=== PATIENT | female | born 1945 | race Caucasian/White ===

== ENCOUNTER 2017-12-28 09:38 | Emergency (ER) | payer MEDICARE ==
[~2017-12-28] VITALS: Ht 165.1 cm; Wt 81.6 kg
[~2017-12-28 09:38] MED LIST: MULT-1045 PO
--- NOTE | 2017-12-28 09:55 | NUR ---
Patient is AOx4, c/o right lower eyelid pains with localized redness & swelling noted, eye pains worse with palpation, dull in nature, pain does not radiate, 3-4/10 pain scale, started about 2 days ago. Sty? MD to evaluate at this time.
== END 2017-12-28 10:34 | disposition home or self-care (01) ==
LOC: ER 09:38
DX: H00.012 Hordeolum externum right lower eyelid (principal); Z91.041 Radiographic dye allergy status
CPT/HCPCS: A4663

== ENCOUNTER → 2018-05-04 | Emergency (ER) | payer MEDICARE ==
[~2018-05-04] VITALS: Ht 165.1 cm; Wt 74.4 kg
[~2018-05-04] MED LIST changes: +ALBUTEROL SULFATE 2.5 MG/3 ML NEBU NEB ONE; +ALBUTEROL SULFATE 2.5 MG/3 ML NEBU ONE; +BENZONATATE 100 MG CAPSULE ONE; +BENZONATATE 100 MG CAPSULE PO ONE
--- NOTE | 2018-05-04 19:45 | NUR ---
Pt. ambulated into ED w/ c/o SOB and chest tightness since today, pt. reports having a cough w/ yellowish discharge since this weekend,
--- NOTE | 2018-05-04 20:11 | NUR ---
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
--- NOTE | 2018-05-04 20:15 | NUR ---
RT at bedside for breathing tx,
[2018-05-04 20:20] LABS: BASOPHILS # (AUTO) 0.1 K/uL (0.0-8.0); BASOPHILS % (AUTO) 0.6 % (0.0-2.0); EOSINOPHILS # (AUTO) 0.2 K/uL (0.0-0.7); EOSINOPHILS % (AUTO) 1.5 % (0.0-7.0); HEMATOCRIT 41.1 % (31.2-41.9); HEMOGLOBIN 13.6 g/dL (10.9-14.3); LYMPHOCYTES # (AUTO) 1.8 K/uL (20.0-40.0); LYMPHOCYTES % (AUTO) 13.4 % (20.5-51.5); MEAN CORPUSCULAR HEMOGLOBIN 29.8 uug (24.7-32.8); MEAN CORPUSCULAR HGB CONC 33 g/dL (32.3-35.6); MEAN CORPUSCULAR VOLUME 90.1 fL (75.5-95.3); MONOCYTES # (AUTO) 1.5 K/uL (2.0-10.0); MONOCYTES % (AUTO) 11.4 % (0.0-11.0); NEUTROPHILS # (AUTO) 9.5 K/uL (1.8-8.9); NEUTROPHILS % (AUTO) 73.1 % (38.5-71.5); PLATELET COUNT (AUTO) 274 K/uL (179-408); RED BLOOD CELL COUNT(AUTO) 4.56 MIL/uL (3.63-4.92); WHITE BLOOD COUNT (AUTO) 13.1 K/uL (3.8-11.8)
--- NOTE | 2018-05-04 20:23 | NUR ---
Called Radiology for CXR
[2018-05-04 20:31] LABS: CARBON DIOXIDE 28 mmol/L (21-32); CHLORIDE 101 mmol/L (98-107); CREATININE 0.7 mg/dL (0.6-1.3); GLUCOSE 115 mg/dL (74-106); POTASSIUM 4.1 mmol/L (3.5-5.1); UREA NITROGEN, BLOOD 14 mg/dL (7-18)
[2018-05-04 20:43] LABS: ALANINE AMINOTRANSFERASE 44 U/L (14-59); ALKALINE PHOSPHATASE 58 U/L (50-136); ASPARTATE AMINOTRANSFERASE 20 U/L (15-37); BILIRUBIN,DIRECT 0.2 mg/dL (0.0-0.2); BILIRUBIN,TOTAL 0.8 mg/dL (0.2-1.0); TOTAL PROTEIN, SERUM 7.6 g/dL (6.4-8.2)
[2018-05-04 20:58] LABS: *BILIRUBIN,URIN NEGATIVE (NEGATIVE); *BLOOD, URINE NEGATIVE (NEGATIVE); *CLARITY,URINE CLEAR (CLEAR); *COLOR,URINE YELLOW (YELLOW); *KETONES,URINE NEGATIVE (NEGATIVE); *UROBILINOGEN,URINE 0.2 E.U./dl (NORMAL); LEUKOCYTE ESTERASE ,URINE NEGATIVE (NEGATIVE); NITRITE, URINE NEGATIVE (NEGATIVE); UGLUCOSE NEGATIVE (NEGATIVE)
--- NOTE | 2018-05-04 22:00 | NUR ---
Patient discharged to home in stable conditon. Written and verbal after care instructions given. Patient verbalizes understanding of instructions. Pt. d/c w/ prescription per MD order, d/c papers signed, all belongings w/ pt., ID band removed, ambulated off unit w/ steady gait, NAD,
== END | disposition home or self-care (01) ==
LOC: ER 19:34
DX: J20.9 Acute bronchitis, unspecified (principal); Z88.8 Allergy status to other drugs, medicaments and biological substances; Z79.899 Other long term (current) drug therapy
CPT/HCPCS: 36415; 70030-TC; 71045; 84443; 85025; 85730; 87040; 87086; 93005; A4663

== ENCOUNTER 2024-01-03 15:13 | Emergency (ER) | payer OTHER, MEDICARE ==
[~2024-01-03] VITALS: Ht 160 cm; Wt 72.6 kg
[~2024-01-03 15:13] MED LIST changes: -ALBUTEROL SULFATE 2.5 MG/3 ML NEBU NEB ONE; -ALBUTEROL SULFATE 2.5 MG/3 ML NEBU ONE; -BENZONATATE 100 MG CAPSULE ONE; -BENZONATATE 100 MG CAPSULE PO ONE
[2024-01-03] MEDS ORDERED: SERT-439 PO (15:24)
[2024-01-03] MEDS ORDERED: ROSU10TA29 PO (15:24)
[2024-01-03 17:36] VITALS: BP 121/70; O2SAT 96
== END 2024-01-03 17:37 | disposition home or self-care (01) ==
LOC: ER 15:13
DX: S13.4XXA Sprain of ligaments of cervical spine, initial encounter (principal); S20.212A Contusion of left front wall of thorax, initial encounter; F41.9 Anxiety disorder, unspecified; R51.9 Headache, unspecified; F32.A Depression, unspecified; Z88.7 Allergy status to serum and vaccine; Z88.8 Allergy status to other drugs, medicaments and biological substances; Z91.041 Radiographic dye allergy status; X58.XXXA Exposure to other specified factors, initial encounter; Y93.89 Activity, other specified; Y92.410 Unspecified street and highway as the place of occurrence of the external cause; Y99.8 Other external cause status
CPT/HCPCS: 70450; 71250; 72125; A4606; A4663